=== PATIENT | female | born 1955 | race Caucasian/White ===

== ENCOUNTER 2022-03-10 16:16 | Emergency (ER) | payer BC, OTHER ==
--- OUTSIDE RECORDS SUMMARY | 2022-03-10 16:18 | XMS REPORT | Continuity of Care Document ---
:1955 Author Organization [facility] t Address [address] [place] [address] Care Team Providers Name Role Phone HALEY ARGUETA Attending Clinician Unavailable ORVILLE STEELE Attending Clinician Unavailable HALEY ARGUETA Admitting Clinician Unavailable Problems This patient has no known problems. Allergies, Adverse Reactions, Alerts This patient has no known allergies or adverse reactions. Medications This patient has no known medications. Procedures This patient has no known procedures. Encounters Start End Encounter Admission Attending Care Care Encounter Source Date/Time Date/Time Type Type Clinicians Facility Department ID 2021-07-25 2021-07-25 Outpatient HALEY ARGUETA [facility] [id number] [place] 00:00:00 00:00:[address] 2021-07-25 2021-07-25 Outpatient HALEY ARGUETA [facility] [id number] [place] 00:00:00 00:00:[address] 2021-06-27 2021-06-27 Outpatient HALEY ARGUETA [facility] [id number] [place] 00:00:00 00:00:[address] 2021-06-27 2021-06-27 Outpatient HALEY ARGUETA [facility] [id number] [place] 00:00:00 00:00:[address] 2021-05-18 2021-05-18 Outpatient [place] [facility] [id number] [place] 00:00:00 00:00:00 [place] [address] 2021-05-18 2021-05-18 Outpatient HALEY ARGUETA [facility] [id number] [place] 00:00:00 00:00:[address] 2021-04-26 2021-04-26 Outpatient HALEY ARGUETA [place] [id number] [place] 00:00:00 00:00:[address] 2021-03-11 2021-03-11 Outpatient HALEY ARGUETA [facility] [id number] [place] 00:00:00 00:00:[address] 2021-02-23 2021-02-23 Outpatient HALEY ARGUETA [facility] [id number] [place] 00:00:00 00:00:[address] 2021-02-23 2021-02-23 Outpatient HALEY ARGUETA [facility] [id number] [place] 00:00:00 00:00:[address] Results This patient has no known results.
--- NOTE | 2022-03-10 17:47 | RAD REPORT ---
EXAM DESCRIPTION: Greg Single View03/10/2022 5:41 pm CLINICAL HISTORY: Hypertension COMPARISON: 2014 FINDINGS: The lungs appear clear of acute infiltrate. The heart is normal size IMPRESSION: No acute abnormalities displayed
[2022-03-10 17:53] LABS: Absolute Lymphocytes (CBC) 2.1 K/uL (0.7-4.9); Hematocrit 44.2 % (36.0-45.0); Lymphocytes % 32.9 % (15.3-44.8); MCV 94.4 fL (80-100); MPV 8.4 fL (7.6-11.3); RBC Red Blood Cell Count 4.68 M/uL (3.86-4.86)
[2022-03-10 18:06] LABS: Troponin High Sensitivity 6.4 pg/mL (<58.9)
--- NOTE | 2022-03-10 18:15 | ER ---
Nurse's Notes [facility] Name: Anai Galindo Age: 66 yrs Sex: Female : 1955 Arrival Date: 03/10/2022 Time: 16:18 Bed 16 Private MD: Diagnosis: Encounter for examination of blood pressure Presentation: 03/10 16:36 Chief complaint: Patient states: she went to her pcp to get covid tested, and her blood ap3 pressure was high. Patient was getting a covid test because she has been having allergies, fatigue and brain fog off and on for weeks maybe months. however she states that she has such sever allergies, so she never knows what it is. patient states her provider sent her over to the ED to be evaluated. patient also reports being under a lot of stress, and is planning a move and job change. Coronavirus screen: Client presents with at least one sign or symptom that may indicate coronavirus-19. Coronavirus screen: The client reports previous COVID testing was negative. Date of collection: March 10, 2022. Ebola Screen: No symptoms or risks identified at this time. Initial Sepsis Screen: Does the patient meet any 2 criteria? No. Patient's initial sepsis screen is negative. Does the patient have a suspected source of infection? No. Patient's initial sepsis screen is negative. Risk Assessment: Do you want to hurt yourself or someone else? Patient reports no desire to harm self or others. Onset of symptoms is unknown. 16:36 Method Of Arrival: Ambulatory ap3 16:36 Acuity: SCOTT 3 ap3 Triage Assessment: 16:42 General: Appears in no apparent distress. Behavior is calm, cooperative. Pain: Denies ap3 pain. Neuro: Level of Consciousness is awake, alert, obeys commands, Oriented to person, place, time, situation, Reports brain fog that has been off and on for reportedly weeks or months. Cardiovascular: Patient's skin is warm and dry. Respiratory: Airway is patent Respiratory effort is even, unlabored. Historical: - Allergies: 16:40 No Known Allergies; ap3 - Home Meds: 16:40 Synthroid 75 mcg Oral tab [Active]; Klonopin Oral [Active]; ap3 - PMHx: 16:40 Anxiety; Hypertensive disorder; Hypothyroidism; ap3 - Immunization history:: Client reports receiving the 2nd dose of the Covid vaccine. - Social history:: Smoking status: Patient reports the use of cigarette tobacco products, denies chronic smoking, but will smoke occasionally, Patient uses alcohol, occasionally. Screenin:41 Abuse screen: Denies threats or abuse. Nutritional screening: No deficits noted. ap3 Tuberculosis screening: No symptoms or risk factors identified. 18:41 Fall Risk None identified. iw Assessment: 18:41 Reassessment: Patient appears in no apparent distress at this time. Patient and/or iw family updated on plan of care and expected duration. Pain level reassessed. Patient is alert, oriented x 3, equal unlabored respirations, skin warm/dry/pink. Vital Signs: 16:36 BP 167 / 104; Pulse 74; Resp 18; Temp 98.0; Pulse Ox 99% ; Weight 74.39 kg; Height 5 ap3 ft. 4 in. (162.56 cm); 16:36 Body Mass Index 28.15 (74.39 kg, 162.56 cm) ap3 ED Course: 16:18 Patient arrived in ED. as 16:39 Triage completed. ap3 16:41 Claudio Cherry is PHCP. jl9 16:41 Lalito Cabezas MD is Attending Physician. jl9 16:42 Arm band placed on right wrist. ap3 17:43 XRAY Chest (1 view) In Process Unspecified. EDMS 17:43 Inserted saline lock: 20 gauge in right antecubital area, using aseptic technique. kc6 Blood collected. 17:44 Basic Metabolic Panel Sent. kc6 17:44 CBC with Diff Sent. kc6 17:44 Troponin HS Sent. kc6 17:49 Dianna Garcia, RN is Primary Nurse. jh6 18:41 Patient has correct armband on for positive identification. iw 18:41 No provider procedures requiring assistance completed. IV discontinued, intact, iw bleeding controlled, No redness/swelling at site. Pressure dressing applied. Administered Medications: No medications were administered Medication: 18:41 VIS not applicable for this client. iw Outcome: 18:14 Discharge ordered by . jl9 18:41 Discharged to home ambulatory, with family. iw 18:41 Condition: good 18:41 Discharge instructions given to patient, family, Instructed on discharge instructions, follow up and referral plans. Demonstrated understanding of instructions, follow-up care. 18:41 Patient left the ED. iw Signatures: Dispatcher [employer] Evie Perkins Irene RN ALBERTA iw Lynda Ram RN RN ap3 Dianna Garcia RN RN jh6 Claudio Cherry9 Nina Monterroso kc6
--- NOTE | 2022-03-10 18:15 | EDPHYS ---
Physician Documentation [facility] Name: Anai Galindo Age: 66 yrs Sex: Female : 1955 Arrival Date: 03/10/2022 Time: 16:18 Bed 16 Private MD: ED Physician Lalito Cabezas HPI: 03/10 18:09 This 66 yrs old Female presents to ER via Ambulatory with complaints of High jl9 Blood Pressure. 18:09 The patient has elevated blood pressure and discovered this at a physician's office, [facility] and sent to the emergency department for evaluation. Onset: The symptoms/episode began/occurred today. Modifying factors: The symptoms are aggravated by. Associated signs and symptoms: The patient has no apparent associated signs or symptoms. Severity of symptoms:. The patient has not experienced similar symptoms in the past. Historical: - Allergies: 16:40 No Known Allergies; ap3 - Home Meds: 16:40 Synthroid 75 mcg Oral tab [Active]; Klonopin Oral [Active]; ap3 - PMHx: 16:40 Anxiety; Hypertensive disorder; Hypothyroidism; ap3 - Immunization history:: Client reports receiving the 2nd dose of the Covid vaccine. - Social history:: Smoking status: Patient reports the use of cigarette tobacco products, denies chronic smoking, but will smoke occasionally, Patient uses alcohol, occasionally. ROS: 18:10 Constitutional: Negative for fever, chills, and weight loss, Eyes: Negative for injury, jl9 pain, redness, and discharge, ENT: Negative for injury, pain, and discharge, Neck: Negative for injury, pain, and swelling, Cardiovascular: Negative for chest pain, palpitations, and edema, Respiratory: Negative for shortness of breath, cough, wheezing, and pleuritic chest pain, Abdomen/GI: Negative for abdominal pain, nausea, vomiting, diarrhea, and constipation, Back: Negative for injury and pain, MS/Extremity: Negative for injury and deformity, Skin: Negative for injury, rash, and discoloration, Neuro: Negative for headache, weakness, numbness, tingling, and seizure, Psych: Negative for depression, anxiety, suicide ideation, homicidal ideation, and hallucinations, Allergy/Immunology: Negative for hives, rash, and allergies, Endocrine: Negative for neck swelling, polydipsia, polyuria, polyphagia, and marked weight changes, Hematologic/Lymphatic: Negative for swollen nodes, abnormal bleeding, and unusual bruising. Exam: 18:10 Constitutional: This is a well developed, well nourished patient who is awake, alert, jl9 and in no acute distress. Head/Face: Normocephalic, atraumatic. Eyes: Pupils equal round and reactive to light, extra-ocular motions intact. Lids and lashes normal. Conjunctiva and sclera are non-icteric and not injected. Cornea within normal limits. Periorbital areas with no swelling, redness, or edema. ENT: Mucous membranes moist. Neck: Trachea midline, no thyromegaly or masses palpated, and no cervical lymphadenopathy. Supple, full range of motion without nuchal rigidity, or vertebral point tenderness. No Meningismus. Chest/axilla: Normal chest wall appearance and motion. Nontender with no deformity. No lesions are appreciated. Cardiovascular: Regular rate and rhythm with a normal S1 and S2. No gallops, murmurs, or rubs. Normal PMI, no JVD. No pulse deficits. Respiratory: Lungs have equal breath sounds bilaterally, clear to auscultation and percussion. No rales, rhonchi or wheezes noted. No increased work of breathing, no retractions or nasal flaring. Abdomen/GI: Soft, non-tender, with normal bowel sounds. No distension or tympany. No guarding or rebound. No evidence of tenderness throughout. Back: No spinal tenderness. No costovertebral tenderness. Full range of motion. Skin: Warm, dry with normal turgor. Normal color with no rashes, no lesions, and no evidence of cellulitis. MS/ Extremity: Pulses equal, no cyanosis. Neurovascular intact. Full, normal range of motion. Neuro: Awake and alert, GCS 15, oriented to person, place, time, and situation. Cranial nerves II-XII grossly intact. Motor strength 5/5 in all extremities. Sensory grossly intact. Cerebellar exam normal. Normal gait. Psych: Awake, alert, with orientation to person, place and time. Behavior, mood, and affect are within normal limits. Vital Signs: 16:36 BP 167 / 104; Pulse 74; Resp 18; Temp 98.0; Pulse Ox 99% ; Weight 74.39 kg; Height 5 ap3 ft. 4 in. (162.56 cm); 16:36 Body Mass Index 28.15 (74.39 kg, 162.56 cm) ap3 MDM: 17:43 Patient medically screened. [facility] 18:11 Data reviewed: vital signs, nurses notes, lab test result(s), EKG. 18:11 Counseling: I had a detailed discussion with the patient and/or guardian regarding: the [facility] historical points, exam findings, and any diagnostic results supporting the discharge/admit diagnosis, the presence of at least one elevated blood pressure reading (>120/80) during this emergency department visit, lab results, the need for outpatient follow up, to return to the emergency department if symptoms worsen or persist or if there are any questions or concerns that arise at home. 18:36 Test interpretation: by ED physician or midlevel provider: ECG, NSR 71bpm. 03/10 16:42 Order name: Basic Metabolic Panel; Complete Time: 18:09 [facility] 03/10 16:42 Order name: CBC with Diff; Complete Time: 18:09 [facility] 03/10 16:42 Order name: Troponin HS; Complete Time: 18:09 03/10 16:42 Order name: XRAY Chest (1 view); Complete Time: 17:54 03/10 16:42 Order name: EKG; Complete Time: 16:42 03/10 16:42 Order name: Cardiac monitoring; Complete Time: 17:50 03/10 16:42 Order name: EKG - Nurse/Tech; Complete Time: 17:44 03/10 16:42 Order name: IV Saline Lock; Complete Time: 17:43 03/10 16:42 Order name: Labs collected and sent; Complete Time: 17:44 Administered Medications: No medications were administered Disposition Summary: 03/10/22 18:14 Discharge Ordered Location: Home jl9 Condition: Stable jl9 Diagnosis - Encounter for examination of blood pressure jl9 Followup: jl9 - With: Private Physician - When: 1 - 2 days - Reason: Recheck today's complaints, Continuance of care, Re-evaluation by your physician Discharge Instructions: - Discharge Summary Sheet jl9 - How to Take Your Blood Pressure, [id number] jl9 - Form - Blood Pressure Record Sheet jl9 Forms: - Medication Reconciliation Form jl9 - Thank You Letter jl9 - Antibiotic Education jl9 - Prescription Opioid Use jl9 Signatures: Dispatcher [facility] Lynda Putnam, ALBERTA RN [email or web address] Claudio Cherry jl9
[2022-03-10 20:06] VITALS: BP 167/104; TEMP 98; O2SAT 99
--- NOTE | 2022-03-13 13:51 | EKG ---
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
== END 2022-03-10 18:41 | disposition home or self-care (01) ==
LOC: ER 16:16
DX: I10 Essential (primary) hypertension (principal)
CPT/HCPCS: 36415; 71045; 80048; 84484; 85025; 93005; 99283